=== PATIENT | male | born 1995 | race Caucasian/White ===

== ENCOUNTER 2018-09-07 18:28 | Emergency (ER) | payer SELFPAY ==
[~2018-09-07] VITALS: Ht 170.2 cm; Wt 75.5 kg
[2018-09-07] MEDS ORDERED: AMOX TR/POT CLAV 875 MG/125 MG TABLET PO ONE (19:30)
[2018-09-07] MEDS ORDERED: PERTUSS(ACELL),DIPH,TET VAC/PF 0.5 ML VIAL IM ONE (19:30)
[2018-09-07] MEDS ORDERED: RABIES IMMUNE GLOBULIN/PF 300 UNITS/ML 5 ML VIAL IM ONE (19:45)
[2018-09-07] MEDS: RABIES VAC,PF CHICK-EMB CELL 2.5 UNITS/ML SYRINGE IM ONE ×2 (19:59→20:04)
[2018-09-07 20:31] VITALS: BP 132/86
== END 2018-09-07 20:55 | disposition home or self-care (01) ==
LOC: EMS 18:29
DX: S81.852A Open bite, left lower leg, initial encounter (principal); F17.210 Nicotine dependence, cigarettes, uncomplicated; W54.0XXA Bitten by dog, initial encounter; Y93.01 Activity, walking, marching and hiking; Y92.488 Other paved roadways as the place of occurrence of the external cause; Y99.8 Other external cause status
CPT/HCPCS: 90375; 90471; 90472; 90675; 90715; 96372; 99406

== ENCOUNTER 2018-09-10 17:13 | Emergency (ER) | payer SELFPAY ==
[~2018-09-10] VITALS: Ht 170.2 cm; Wt 77.3 kg
[2018-09-10] MEDS ORDERED: RABIES VAC,PF CHICK-EMB CELL 2.5 UNITS/ML SYRINGE IM ONE (18:00)
[2018-09-10 18:31] VITALS: BP 119/76
== END 2018-09-10 18:36 | disposition home or self-care (01) ==
LOC: EMS 17:13
DX: S81.832D Puncture wound without foreign body, left lower leg, subsequent encounter (principal); F17.210 Nicotine dependence, cigarettes, uncomplicated; Z23 Encounter for immunization; W54.0XXD Bitten by dog, subsequent encounter
CPT/HCPCS: 90471; 90675; 99406

== ENCOUNTER 2018-09-21 16:47 | Emergency (ER) | payer SELFPAY ==
[~2018-09-21] VITALS: Ht 170.2 cm; Wt 77.3 kg
[2018-09-21] MEDS ORDERED: IBUP-2070 PO (16:54)
[2018-09-21] MEDS ORDERED: RABIES VAC,PF CHICK-EMB CELL 2.5 UNITS/ML SYRINGE IM ONE (17:30)
[2018-09-21 18:45] VITALS: BP 126/73
== END 2018-09-21 19:13 | disposition home or self-care (01) ==
LOC: EMS 16:47
DX: S81.831A Puncture wound without foreign body, right lower leg, initial encounter (principal); F17.210 Nicotine dependence, cigarettes, uncomplicated; W54.0XXA Bitten by dog, initial encounter; Y93.89 Activity, other specified; Y92.89 Other specified places as the place of occurrence of the external cause; Y99.8 Other external cause status
CPT/HCPCS: 90471; 90675

== ENCOUNTER 2019-10-23 20:29 | Emergency (ER) | payer MEDICAID, OTHER ==
[~2019-10-23] VITALS: Ht 162.6 cm; Wt 72.7 kg
[~2019-10-23 20:29] MED LIST: IBUP-2070 PO
[2019-10-23] MEDS ORDERED: LIDOCAINE 1% 10 ML VIAL INJ ONE (21:00)
[2019-10-23 21:43] VITALS: BP 140/78
== END 2019-10-23 22:09 | disposition home or self-care (01) ==
LOC: EMS 20:29
DX: S61.412A Laceration without foreign body of left hand, initial encounter (principal); F17.210 Nicotine dependence, cigarettes, uncomplicated; W26.0XXA Contact with knife, initial encounter; Y93.89 Activity, other specified; Y92.89 Other specified places as the place of occurrence of the external cause; Y99.8 Other external cause status
CPT/HCPCS: 12002; 99282; J3490